=== PATIENT | male | born 1960 | race Caucasian/White ===

== ENCOUNTER 2022-01-07 21:25 | Observation (INO) | payer BC, MEDICARE ==
[~2022-01-07] VITALS: Ht 182.9 cm; Wt 98.0 kg
[~2022-01-07 21:25] MED LIST: GABA800T97; LORA-655 PO; PERCOT
[2022-01-07 22:54] LABS: Basophils # (auto) 0.1 10 ^3/uL (0-0.2); Basophils % (auto) 0.5 % (0.0-2.0); Eosinophils # (auto) 0 10 ^3/uL (0-0.8); Eosinophils % (auto) 0.3 % (0.0-7.0); Hematocrit 25.7 % (41.0-53.0); Hemoglobin 8.5 g/dL (13.5-17.5); Lymphocytes # (auto) 1.4 10 ^3/uL (0.4-5.4); Lymphocytes % (auto) 8.4 % (10.0-50.0); Mean Corpuscular Hemoglobin 30.4 pg (28.0-32.0); Mean Corpuscular Hgb Conc. 33.1 g/dL (32.0-36.0); Mean Corpuscular Volume 91.8 fL (80.0-100.0); Monocytes % (auto) 5.9 % (0.0-12.0); Neutrophils # (auto) 14.1 10 ^3/uL (1.6-8.6); Neutrophils % (auto) 84.9 % (37.0-80.0); Red Cell Distribution Width 13.5 % (11.8-14.3); White Blood Cell 16.6 10^3/uL (4.4-10.8)
[2022-01-07] MEDS ORDERED: SODIUM CHLORIDE 0.9% 1,000 ML IV ONE (23:15)
[2022-01-08 00:48] LABS: Bilirubin, Total 0.4 mg/dL (0.2-1.0); Lactic Acid w/Reflex 3.1 mmol/L (0.4-2.0); Total Protein 6.3 g/dL (6.4-8.2)
[2022-01-08] MEDS ORDERED: fentaNYL CITRATE 100 MCG/2 ML VL ONE (00:53)
[2022-01-08] MEDS ORDERED: ONDANSETRON HCL 4 MG/2 ML VIAL ONE (00:53)
[2022-01-08] MEDS ORDERED: ONDANSETRON HCL 4 MG/2 ML VIAL IV ONE (01:00)
[2022-01-08] MEDS ORDERED: fentaNYL CITRATE 100 MCG/2 ML VL IV ONE (01:00)
[2022-01-08 01:15] LABS: Albumin 2.6 g/dL (3.4-5.0); BUN/Creatinine Ratio 27.3; Magnesium 1.9 mg/dL (1.6-2.6); Potassium 4.4 mmol/L (3.5-5.1)
[2022-01-08 01:44] LABS: Basophils # (auto) 0 10 ^3/uL (0-0.2); Basophils % (auto) 0.2 % (0.0-2.0); Eosinophils # (auto) 0 10 ^3/uL (0-0.8); Eosinophils % (auto) 0.1 % (0.0-7.0); Lymphocytes # (auto) 1.6 10 ^3/uL (0.4-5.4); Neutrophils # (auto) 16.5 10 ^3/uL (1.6-8.6); Nucleated Red Blood Cells % 0.1 %
[2022-01-08 01:46] LABS: Hematocrit 22.5 % (41.0-53.0); Hemoglobin 7.7 g/dL (13.5-17.5); Lymphocytes % (auto) 8.2 % (10.0-50.0); Mean Corpuscular Hemoglobin 31.6 pg (28.0-32.0); Mean Corpuscular Hgb Conc. 34.3 g/dL (32.0-36.0); Mean Corpuscular Volume 92.1 fL (80.0-100.0); Monocytes % (auto) 5.3 % (0.0-12.0); Neutrophils % (auto) 86.2 % (37.0-80.0); Red Blood Cells 2.44 10^6/uL (4.5-5.90); Red Cell Distribution Width 13.7 % (11.8-14.3); White Blood Cell 19.1 10^3/uL (4.4-10.8)
[2022-01-08 02:17] LABS: Partial Thromboplastin Time 24.9 sec (24.6-33.4)
[2022-01-08] MEDS ORDERED: PIPERACILLIN-TAZOB 3.375GM 100 ML IV ONE (02:30)
[2022-01-08] MEDS ORDERED: PANTOPRAZOLE 40 MG/10 ML VIAL INJ IV ONE (03:00)
[2022-01-08] MEDS ORDERED: MORPHINE SULFATE INJ 2 MG/ml SYRG IV PRN (03:00)
[2022-01-08] MEDS ORDERED: SODIUM CHLORIDE 0.9% 1,000 ML IV ONE (03:00)
[2022-01-08] MEDS ORDERED: NITROGLYCERIN 0.4 MG SL TAB SL PRN (03:00)
[2022-01-08] MEDS: ONDANSETRON HCL 4 MG/2 ML VIAL IV PRN ×3 (03:40→16:44)
[2022-01-08] MEDS: MORPHINE SULFATE INJ 2 MG/ml SYRG IV PRN ×4 (03:40→22:12)
[2022-01-08] MEDS: PANTOPRAZOLE 40mg/50ML NS AE 50 ML IV SCH ×5 (03:43→22:11)
[2022-01-08 04:45] VITALS: BP 113/65
[2022-01-08 05:00] VITALS: BP 121/64
[2022-01-08] MEDS: SODIUM CHLORIDE 0.9% 1,000 ML IV SCH ×2 (05:01→12:53)
[2022-01-08] MEDS: PIPERACILLIN-TAZOB 3.375GM 100 ML IV SCH ×3 (09:20→18:00)
[2022-01-08 09:25] LABS: Basophils # (auto) 0.1 10 ^3/uL (0-0.2); Eosinophils # (auto) 0.1 10 ^3/uL (0-0.8); Lymphocytes # (auto) 1.8 10 ^3/uL (0.4-5.4); Red Cell Distribution Width 14.6 % (11.8-14.3)
[2022-01-08 09:29] LABS: Basophils % (auto) 0.7 % (0.0-2.0); Eosinophils % (auto) 0.6 % (0.0-7.0); Hematocrit 25.6 % (41.0-53.0); Hemoglobin 8.3 g/dL (13.5-17.5); Lymphocytes % (auto) 12.1 % (10.0-50.0); Mean Corpuscular Hemoglobin 29.6 pg (28.0-32.0); Mean Corpuscular Hgb Conc. 32.6 g/dL (32.0-36.0); Mean Corpuscular Volume 90.7 fL (80.0-100.0); Monocytes % (auto) 6.9 % (0.0-12.0); Neutrophils # (auto) 11.8 10 ^3/uL (1.6-8.6); Neutrophils % (auto) 79.7 % (37.0-80.0); Red Blood Cells 2.82 10^6/uL (4.5-5.90); White Blood Cell 14.8 10^3/uL (4.4-10.8)
[2022-01-08 09:44] LABS: Urine Bacteria FEW /hpf (None Seen); Urine Blood Negative /uL (Negative); Urine Specific Gravity 1.028 (1.001-1.035); Urine WBC 2 /hpf (0 - 3)
[2022-01-08 09:45] LABS: Calcium 7.7 mg/dL (8.5-10.1); Potassium 4.2 mmol/L (3.5-5.1)
[2022-01-08 09:47] LABS: BUN/Creatinine Ratio 32.5
[2022-01-08] MEDS ORDERED: GOLYTELY 4L KIT PO ONE (16:00)
[2022-01-08 22:00] VITALS: BP 129/80
[2022-01-09] MEDS: PIPERACILLIN-TAZOB 3.375GM 100 ML IV SCH ×4 (01:25→19:22)
[2022-01-09] MEDS: SODIUM CHLORIDE 0.9% 1,000 ML IV SCH ×4 (01:31→19:20)
[2022-01-09] MEDS: MORPHINE SULFATE INJ 2 MG/ml SYRG IV PRN ×3 (03:57→19:32)
[2022-01-09 05:00] VITALS: BP 125/74
[2022-01-09] MEDS ORDERED: GOLYTELY 4L KIT PO ONE (06:00)
[2022-01-09] MEDS: PANTOPRAZOLE 40mg/50ML NS AE 50 ML IV SCH ×4 (06:13→19:24)
[2022-01-09 06:53] LABS: Basophils # (auto) 0.1 10 ^3/uL (0-0.2); Basophils % (auto) 0.6 % (0.0-2.0); Eosinophils # (auto) 0.4 10 ^3/uL (0-0.8); Hematocrit 24.8 % (41.0-53.0); Hemoglobin 8.2 g/dL (13.5-17.5); Lymphocytes # (auto) 1.6 10 ^3/uL (0.4-5.4); Lymphocytes % (auto) 16.3 % (10.0-50.0); Mean Corpuscular Hemoglobin 30.5 pg (28.0-32.0); Mean Corpuscular Hgb Conc. 33.2 g/dL (32.0-36.0); Mean Corpuscular Volume 91.8 fL (80.0-100.0); Monocytes # (auto) 0.6 10 ^3/uL (0-1.3); Monocytes % (auto) 5.8 % (0.0-12.0); Neutrophils # (auto) 6.9 10 ^3/uL (1.6-8.6); Neutrophils % (auto) 73.3 % (37.0-80.0); Red Cell Distribution Width 14.7 % (11.8-14.3); White Blood Cell 9.5 10^3/uL (4.4-10.8)
[2022-01-09 09:00] VITALS: BP 136/71
[2022-01-09 09:25] LABS: Basophils # (auto) 0.1 10 ^3/uL (0-0.2); Basophils % (auto) 1.2 % (0.0-2.0); Eosinophils # (auto) 0.4 10 ^3/uL (0-0.8); Eosinophils % (auto) 3.5 % (0.0-7.0); Hematocrit 27.5 % (41.0-53.0); Hemoglobin 9.1 g/dL (13.5-17.5); Lymphocytes # (auto) 1.4 10 ^3/uL (0.4-5.4); Lymphocytes % (auto) 12.7 % (10.0-50.0); Mean Corpuscular Hemoglobin 30.1 pg (28.0-32.0); Mean Corpuscular Hgb Conc. 32.9 g/dL (32.0-36.0); Mean Corpuscular Volume 91.4 fL (80.0-100.0); Monocytes # (auto) 0.5 10 ^3/uL (0-1.3); Monocytes % (auto) 5.1 % (0.0-12.0); Neutrophils # (auto) 8.4 10 ^3/uL (1.6-8.6); Neutrophils % (auto) 77.5 % (37.0-80.0); Red Blood Cells 3.01 10^6/uL (4.5-5.90); Red Cell Distribution Width 14.7 % (11.8-14.3); White Blood Cell 10.8 10^3/uL (4.4-10.8)
[2022-01-09] MEDS ORDERED: LIDOCAINE VISCOUS 2% 15ML UD ONE (10:23)
[2022-01-09] MEDS ORDERED: SODIUM CHLORIDE LOCK 10 ML ONE (10:23)
[2022-01-09] MEDS ORDERED: FLUMAZENIL 0.1 MG/ML INJ 10ML MDV IV ONE (10:23)
[2022-01-09] MEDS ORDERED: NALOXONE HCL 0.4 MG/ML VIAL ONE (10:23)
[2022-01-09] MEDS ORDERED: diphenhdrAMINE HCL 50 MG/1 ML VL ONE (10:24)
[2022-01-09] MEDS ORDERED: EPINEPHrine HCL 1 MG/1 ML AMP ONE (10:24)
[2022-01-09] MEDS: MIDAZOLAM HCL 5 MG/ML-1ML VIAL ONE ×3 (12:11→12:17)
[2022-01-09] MEDS: fentaNYL CITRATE 100 MCG/2 ML VL ONE ×3 (12:11→12:17)
[2022-01-09] MEDS ORDERED: SUCR1SUS10 PO (12:36)
[2022-01-09] MEDS ORDERED: OMEP-434 PO (12:36)
[2022-01-09 13:00] VITALS: BP 131/73
[2022-01-09 16:43] VITALS: BP 132/71
[2022-01-09 16:48] LABS: Basophils # (auto) 0.1 10 ^3/uL (0-0.2); Basophils % (auto) 0.8 % (0.0-2.0); Eosinophils # (auto) 0.4 10 ^3/uL (0-0.8); Eosinophils % (auto) 3.3 % (0.0-7.0); Hematocrit 26.7 % (41.0-53.0); Hemoglobin 8.9 g/dL (13.5-17.5); Lymphocytes % (auto) 18.3 % (10.0-50.0); Mean Corpuscular Hemoglobin 30.4 pg (28.0-32.0); Mean Corpuscular Hgb Conc. 33.2 g/dL (32.0-36.0); Mean Corpuscular Volume 91.5 fL (80.0-100.0); Monocytes # (auto) 0.6 10 ^3/uL (0-1.3); Neutrophils # (auto) 7.7 10 ^3/uL (1.6-8.6); Neutrophils % (auto) 71.6 % (37.0-80.0); Red Blood Cells 2.92 10^6/uL (4.5-5.90); Red Cell Distribution Width 14.7 % (11.8-14.3); White Blood Cell 10.8 10^3/uL (4.4-10.8)
[2022-01-09 22:00] VITALS: BP 122/74
[2022-01-10] MEDS: PIPERACILLIN-TAZOB 3.375GM 100 ML IV SCH ×4 (01:41→18:59)
[2022-01-10] MEDS: PANTOPRAZOLE 40mg/50ML NS AE 50 ML IV SCH ×4 (01:42→15:58)
[2022-01-10] MEDS: MORPHINE SULFATE INJ 2 MG/ml SYRG IV PRN ×4 (02:20→17:38)
[2022-01-10 05:00] VITALS: BP 140/71
[2022-01-10] MEDS: SODIUM CHLORIDE 0.9% 1,000 ML IV SCH ×2 (06:57→11:44)
[2022-01-10 09:00] VITALS: BP 140/75
[2022-01-10 13:00] VITALS: BP 155/81
[2022-01-10 17:00] VITALS: BP 153/79
[2022-01-10 18:16] VITALS: BP 110/75
[2022-01-10 20:58] LABS: Basophils # (auto) 0.1 10 ^3/uL (0-0.2); Basophils % (auto) 0.8 % (0.0-2.0); Eosinophils # (auto) 0.4 10 ^3/uL (0-0.8); Eosinophils % (auto) 3.7 % (0.0-7.0); Hemoglobin 9.6 g/dL (13.5-17.5); Lymphocytes # (auto) 1.7 10 ^3/uL (0.4-5.4); Lymphocytes % (auto) 15.2 % (10.0-50.0); Mean Corpuscular Hemoglobin 30.1 pg (28.0-32.0); Mean Corpuscular Hgb Conc. 33.2 g/dL (32.0-36.0); Mean Corpuscular Volume 90.8 fL (80.0-100.0); Monocytes # (auto) 0.7 10 ^3/uL (0-1.3); Monocytes % (auto) 6.5 % (0.0-12.0); Neutrophils # (auto) 8.3 10 ^3/uL (1.6-8.6); Neutrophils % (auto) 73.8 % (37.0-80.0); Nucleated Red Blood Cells % 0.1 %; Red Cell Distribution Width 14.6 % (11.8-14.3); White Blood Cell 11.3 10^3/uL (4.4-10.8)
== END 2022-01-10 21:34 | disposition home health service (06) ==
LOC: EDBD 21:25 → ER 21:37 → TELE 01-08 03:07 → TELE-WESTW 01-08 18:36
PROVIDERS: ADMIT Hospitalist; ATTEND Hospitalist
DX: R55 Syncope and collapse (principal); Z20.822 Contact with and (suspected) exposure to COVID-19; D64.9 Anemia, unspecified; K92.2 Gastrointestinal hemorrhage, unspecified; E86.1 Hypovolemia; S09.90XA Unspecified injury of head, initial encounter; I10 Essential (primary) hypertension; D62 Acute posthemorrhagic anemia; K20.90 Esophagitis, unspecified without bleeding; M79.652 Pain in left thigh; Z96.651 Presence of right artificial knee joint; Z79.899 Other long term (current) drug therapy; Z98.890 Other specified postprocedural states; X58.XXXA Exposure to other specified factors, initial encounter; Y92.89 Other specified places as the place of occurrence of the external cause; Y93.89 Activity, other specified; Y99.8 Other external cause status
CPT/HCPCS: 36415; 36430; 43239; 45378; 70450; 71045; 71250; 72125; 74176; 80048; 80053; 81001; 83605; 83690; 83735; 84484; 85025; 85610; 85730; 86850; 86900; 86901; 86920; 87426; 88305; 88342; 93005; 96365; 96366; 96368; 96375; 96376; 99285; C9113; G0378; J1200; J2250; J2270; J2405; J2543; J3010; J7030; P9016; J0171

== ENCOUNTER 2024-11-28 13:46 | Inpatient (IN) | payer OTHER, MEDICAID ==
[~2024-11-28] VITALS: Ht 175.3 cm; Wt 96.4 kg
[~2024-11-28 13:46] MED LIST changes: +OMEP-434 PO; +SUCR1SUS26 PO
--- NOTE | 2024-11-28 13:53 | ED.PDOC ---
GI ASSESSMENT HPI Comments 64 y/o M, BIBA, with PMHx of HTN presents to the ED for CC of abdominal pain. EMS reports, patient is coming from home where he c/o diffuse abdominal pain with associated symptoms of nausea and vomiting onset, today (11/28/24). Patient reports, his LBM to be as of today (11/28/24). In route to the ED, all vital signs were WNL patient was said to be in moderate distress however. Upon arrival to the Ed, patient began to have bright red emesis. Care is ongoing at this time. Time Seen by MD: 13:50 Primary Care Provider: MATTHEW Reviewed Notes: Nurses Notes, Nurse Esthetician Notes, Medications, Allergies Allergies: Coded Allergies: NO KNOWN ALLERGIES (Unverified , 12/16/10) Home Meds Active Scripts Sucralfate (CARAFATE SUSP) 1 Gm/10 Ml Ss, 10 ML PO QID, #1200 ML 3 Refills Prov:KOMAL RUVALCABA MD 01/09/22 Omeprazole Magnesium (Omeprazole) 20 Mg Tab, 20 MG PO BID for 60 Days, #120 TAB Prov:KOMAL RUVALCABA MD 01/09/22 Reported Medications Lorazepam (Ativan) 0.5 Mg Tab, PO PRN 04/12/12 Oxycodone W/ Acetaminophen (Percocet 5/325MG) 1 Tab Tb 04/12/12 [[id number] Mg] (Gabapentin) 800 MG TAB No Conflict Check, MG 04/12/12 Information Source: Patient, Emergency Med Personnel Mode of Arrival: EMS Timing: Days Duration: Since onset Prehospital treatment: None Vomitus: Watery Stool: Normal Severity: Moderate Recent: None Recent Hx of: None Pain Location: Diffuse Modifying Factors: Nothing Associated sign and symptoms: Nausea, Vomiting, Abdominal Pain Past Medical History PAST MEDICAL HISTORY: HTN Surgical History: Hernia Repair Family History Family History: Reviewed,noncontributory to illness Social History Smoker: Non-Smoker Alcohol: Denies ETOH Use Drugs: Denies Drug Use Lives In: Home Constitutional: denies: chills, diaphoresis, fatigue, fever, malaise, sweats, weakness, others EENTM: denies: blurred vision, double vision, ear bleeding, ear discharge, ear drainage, ear pain, ear ringing, eye pain, eye redness, hearing loss, mouth pain, mouth swelling, nasal discharge, nose bleeding, nose congestion, nose pain, photophobia, tearing, throat pain, throat swelling, voice changes, others Respiratory: denies: cough, hemoptysis, orthopnea, SOB at rest, shortness of breath, SOB with excertion, stridor, wheezing, others Cardiovascular: denies: chest pain, dizzy spells, diaphoresis, Dyspnea on exertion, edema, irregular heart beat, left arm pain, lightheadedness, palpitations, PND, syncope, others Gastrointestinal: reports: abdominal pain, nausea, vomiting; denies: abdomen distended, blood streaked bowels, constipated, diarrhea, dysphagia, difficulty swallowing, hematemesis, melena, poor appetite, poor fluid intake, rectal bleeding, rectal pain, others Genitourinary: denies: burning, dysuria, flank pain, frequency, hematuria, incontinence, penile discharge, penile sore, pain, testicle pain, testicle swelling, urgency, others Neurological: denies: dizziness, fainting, headache, left sided numbness, left sided weakness, numbness, paresthesia, pre-existing deficit, right sided numbness, right sided weakness, seizure, speech problems, tingling, tremors, weakness, others Musculoskeletal: denies: back pain, gout, joint pain, joint swelling, muscle pain, muscle stiffness, neck pain, others Integumetry: denies: bruises, change in color, change in hair/nails, dryness, laceration, lesions, lumps, rash, wounds, others Allergic/Immunocompromised: denies: Difficulty Healing, Frequent Infections, Hives, Itching, others Hematologic/Lymphatic: denies: anemia, blood clots, easy bleeding, easy bruising, swollen glands, others Endocrine: denies: excessive hunger, excessive sweating, excessive thirst, excessive urination, flushing, intolerance to cold, intolerance to heat, unexplained weight gain, unexplained weight loss, others Psychiatric: denies: anxiety, bipolar disorder, depression, hopeless, panic disorder, schizophrenia, sleepless, suicidal, others All Other Systems: Reviewed and Negative Physical Exam General Appearance: Moderate Distress HEENT: Normal ENT Inspection, Pharynx Normal, TMs Normal Neck: Full Range of Motion, Non-Tender, Normal, Normal Inspection Respiratory: Chest Non-Tender, Lungs Clear, No Accessory Muscle Use, No Respiratory Distress, Normal Breath Sounds Cardiovascular: No Edema, No JVD, No Murmur, No Gallop, Normal Peripheral Pulses, Regular Rate/Rhythm Breast Exam: Deferred Gastrointestinal: Distended Genitalia: Deferred Pelvic: Deferred Rectal: Deferred Extremities: No calf tenderness, Normal range of motion, No pedal edema Musculoskeletal : Apperance: Normal Neurologic: Alert, No Motor Deficits, No Sensory Deficits Cerebellar Function: NOT DONE Reflexes: NOT DONE Skin: Dry, Normal Color, Warm Lymphatic: No Adenopathy Was a procedure done? Was a procedure done?: No GI differential Dx Differential Diagnosis: Constipation, Diverticular disease, Esophagitis, Gastritis/PUD, Gastroenteritis, Electrolyte Imbalance, Food Poisoning, Bacterial, Viral X-Ray, Labs, Meds, VS Vital Signs Date Time Temp Pulse Resp B/P (MAP) Pulse Ox O2 Delivery O2 Flow Rate FiO2 11/28/24 14:10 98.0 72 25 129/61 99 98.0 11/28/24 13:52 61 Lab Test 11/28/24 14:10 Range/Units White Blood Count 12.2 H 4.4-10.8 10^3/uL Red Blood Count 5.26 4.5-5.90 10^6/uL Hemoglobin 16.1 13.5-17.5 g/dL Hematocrit 47.2 41.0-53.0 % Mean Corpuscular Volume 89.7 80.0-100.0 fL Mean Corpuscular Hemoglobin 30.6 28.0-32.0 pg Mean Corpuscular Hemoglobin Concent 34.1 32.0-36.0 g/dL Red Cell Distribution Width 13.8 11.8-14.3 % Platelet Count 247 140-450 10^3/uL Mean Platelet Volume 10.2 6.9-10.8 fL Neutrophils (%) (Auto) 86.9 H 37.0-80.0 % Lymphocytes (%) (Auto) 8.2 L 10.0-50.0 % Monocytes (%) (Auto) 4.0 0.0-12.0 % Eosinophils (%) (Auto) 0.6 0.0-7.0 % Basophils (%) (Auto) 0.3 0.0-2.0 % Neutrophils # (Auto) 10.6 H 1.6-8.6 10 ^3/uL Lymphocytes # (Auto) 1.0 0.4-5.4 10 ^3/uL Monocytes # (Auto) 0.5 0-1.3 10 ^3/uL Eosinophils # (Auto) 0.1 0-0.8 10 ^3/uL Basophils # (Auto) 0 0-0.2 10 ^3/uL Nucleated Red Blood Cells 0.0 % Sodium Level 142 136-145 mmol/L Potassium Level 4.0 3.5-5.1 mmol/L Chloride Level 105 98-107 mmol/L Carbon Dioxide Level 25 20-31 mmol/L Anion Gap 12 5-15 Blood Urea Nitrogen 19 9-23 mg/dL Creatinine 1.34 H 0.700-1.30 mg/dL Glomerular Filtration Rate Calc 59 >90 mL/min BUN/Creatinine Ratio 14.2 10.0-20.0 Serum Glucose 137 H 74-106 mg/dL Calcium Level 9.5 8.7-10.4 mg/dL Troponin I High Sensitivity 3 L </=54 ng/L Patient alert. Complaining of abdominal pain. Vomiting of blood-tinged material. Vitals stable. Establish intravenous access. Was given fluids. Was given Protonix. Explained to the patient. Continue to monitor. [place] [id number] Ph: [phone] DIAGNOSTIC IMAGING Diagnostic Imaging Report : [id number] Signed PATIENT: LEIF LUCIO PACCT: [id number] UNIT: [id number] : 1960 LOC: ER ROOM / BED: / AGE / SEX: 64 / M ADM STATUS: REG ER SERVICE 1400 ORDERING PHYSICIAN: PRASANTH CERON MD PROCEDURE(s): ABPL - CT AB PEL WO CON-NO ORAL OR IV REASON: distended ORDER NUMBER(s): [id number], ACCESSION NUMBER(s): [id number] CLINICAL INFORMATION: Abdominal distention. TECHNIQUE: Axial CT images of the abdomen and pelvis were obtained without IV contrast. Coronal and sagittal reformatted images were obtained, reviewed, and stored. Evaluation of the parenchymal organs is limited without IV contrast. Evaluation of the bowel and mesentery is limited without oral contrast. All CT scans at this medical facility are performed using dose modulation techniques as appropriate to a performed exam including the following: Automated exposure control was utilized; adjustment of the MA and/or KV according to patient size; and use of iterative reconstruction technique. CTDIvol = 21.04 mGy DLP = 3.92 mGy-cm COMPARISON: CT CHEST ABD PELVIS WO CONTRAS on DOS: 01/07/22, CTCAP on DOS: 01/07/22 FINDINGS: Motion artifact limits evaluation. Lung bases: Atelectasis in the lung bases. Respiratory motion artifact limits evaluation for subtle findings. [id number] cardiomegaly. Liver: Hepatic steatosis with areas of focal fatty sparing. Biliary: No calcified gallstones or biliary ductal dilatation. Spleen: Unremarkable. Pancreas: Grossly unremarkable in its noncontrast enhanced appearance. Adrenal glands: Unremarkable. No mass. Kidneys: No hydronephrosis. No renal or ureteral calculi. Aorta/Vascular: Mild to moderate atherosclerotic calcification. No abdominal aortic aneurysm. Retroperitoneum: No mass or lymphadenopathy. Bowel/mesentery: Dilated fluid-filled small bowel loops in the central abdomen with nondilated distal small bowel loops, suspected small-bowel obstruction with questionable transition point in the right lower abdomen. Appendix is visualized and appears unremarkable. Scattered colonic diverticula without adjacent inflammatory changes to suggest diverticulitis. Pelvic organs: Grossly unremarkable. Bladder: Unremarkable. No mass. Abdominal wall: Moderate-sized bilateral fat containing inguinal hernias. Bones: No acute fracture or suspicious intraosseous lesion. Postsurgical changes in the left acetabulum from prior open reduction internal fixation. Chronic appearing mild deformity of the superior endplate of the L2 vertebral body. IMPRESSION: 1. Motion limited study. 2. Findings consistent with small-bowel obstruction as described above. Correlate with clinical findings. 3. Scattered colonic diverticula without adjacent inflammatory changes to suggest diverticulitis. 4. Hepatic steatosis. 5. Moderate-sized bilateral fat containing inguinal hernias. 6. Additional findings as described above. ATED BY: CHANDRA SPIVEY DO DICTATED DATE/TIME: 11/28/241531 SIGNED BY: CHANDRA SPIVEY DO SIGNED DATE/TIME: 11/28/241531 CC: Time of 1ST Reevaluation: 14:20 Reevaluation 1ST: Unchanged Patient Education/Counseling: Diagnosis, Treatment Family Education/Counseling: No Family Present SEPSIS Sepsis Screen Physician Orders Urinalysis (8/5/25 14:00) Ct Ab Pel Wo Con-No Oral Or Iv (11/28/24 14:00) Type And Screen (11/28/24 14:02) Vital Signs Date Time Temp Pulse Resp B/P (MAP) Pulse Ox O2 Delivery O2 Flow Rate FiO2 11/28/24 14:10 98.0 72 25 129/61 99 98.0 11/28/24 13:52 61 Laboratory Tests Test 11/28/24 14:10 White Blood Count 12.2 10^3/uL (4.4-10.8) H Departure 1 Departure Time of Disposition: 14:14 Impression: Primary Impression: Small bowel obstruction Additional Impression: Acute abdominal pain Disposition: ADMITTED INPATIENT Admit to: Med Surg Condition: Guarded Critical Care Note Critical Care Time?: Yes (90 min-critical care time only) Stability Stability form required: No Heart Score Heart Score: Heart Score Response (Comments) Value History N/A 0 EKG N/A 0 Age N/A 0 Risk Factors N/A 0 Troponin N/A 0 Total 0 I personally scribed for PRASANTH CERON MD ([email or web address]) on 11/28/24 at 13:53. Electronically submitted by Lucie Vasquez ([email or web address]). I personally scribed for PRASANTH CERON MD ([email or web address]) on 11/28/24 at 14:04. Electronically submitted by Lucie Vasquez ([email or web address]). I personally scribed for PRASANTH CERON MD ([email or web address]) on 11/28/24 at 15:43. Electronically submitted by Lucie Vasquez ([email or web address]). PRASANTH CERON MD Nov 28, 2024 13:53
--- NOTE | 2024-11-28 14:14 | ECG ---
[facility] Test Date: 2024-11-28 Test Time: 13:52:43 Pat Name: LEIF LUCIO Department: ED Room: 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
[2024-11-28 14:44] LABS: Hematocrit 47.2 % (41.0-53.0); Hemoglobin 16.1 g/dL (13.5-17.5); Mean Corpuscular Hemoglobin 30.6 pg (28.0-32.0); Mean Corpuscular Volume 89.7 fL (80.0-100.0); Nucleated Red Blood Cells % 0.0 %
[2024-11-28 14:52] LABS: Chloride 105 mmol/L (98-107); Potassium 4.0 mmol/L (3.5-5.1); Sodium 142 mmol/L (136-145)
[2024-11-28 14:53] LABS: Anion Gap 12 (5-15); Calcium 9.5 mg/dL (8.7-10.4); Carbon Dioxide 25 mmol/L (20-31)
[2024-11-28 14:58] LABS: BUN/Creatinine Ratio 14.2 (10.0-20.0); Blood Urea Nitrogen 19 mg/dL (9-23)
[2024-11-28 14:59] LABS: Glucose 137 mg/dL (74-106)
--- NOTE | 2024-11-28 15:34 | DVH ---
CLINICAL INFORMATION: Abdominal distention. TECHNIQUE: Axial CT images of the abdomen and pelvis were obtained without IV contrast. Coronal and s agittal reformatted images were obtained, reviewed, and stored. Evaluation of the parenchymal organs is limited without IV contrast. Evaluation of the bowel and mesentery is limited without oral contras t. All CT scans at this medical facility are performed using dose modulation techniques as appropriat e to a performed exam including the following: Automated exposure control was utilized; adjustment of the MA and/or KV according to patient size; and use of iterative reconstruction technique. CTDIvol = 21.04 mGy DLP = 3.92 mGy-cm COMPARISON: CT CHEST ABD PELVIS WO CONTRAS on DOS: 01/07/22, CTCAP on DOS: 01/07/22 FINDINGS: Motion artifact limits evaluation. Lung bases: Atelectasis in the lung bases. Respiratory motion artifact limits evaluation for subtle f indings. Ggyj-pb-fbezjgen cardiomegaly. Liver: Hepatic steatosis with areas of focal fatty sparing. Biliary: No calcified gallstones or biliary ductal dilatation. Spleen: Unremarkable. Pancreas: Grossly unremarkable in its noncontrast enhanced appearance. Adrenal glands: Unremarkable. No mass. Kidneys: No hydronephrosis. No renal or ureteral calculi. Aorta/Vascular: Mild to moderate atherosclerotic calcification. No abdominal aortic aneurysm. Retroperitoneum: No mass or lymphadenopathy. Bowel/mesentery: Dilated fluid-filled small bowel loops in the central abdomen with nondilated distal small bowel loops, suspected small-bowel obstruction with questionable transition point in the right lower abdomen. Appendix is visualized and appears unremarkable. Scattered colonic diverticula witho ut adjacent inflammatory changes to suggest diverticulitis. Pelvic organs: Grossly unremarkable. Bladder: Unremarkable. No mass. Abdominal wall: Moderate-sized bilateral fat containing inguinal hernias. Bones: No acute fracture or suspicious intraosseous lesion. Postsurgical changes in the left acetabul um from prior open reduction internal fixation. Chronic appearing mild deformity of the superior endp late of the L2 vertebral body. IMPRESSION: 1. Motion limited study. 2. Findings consistent with small-bowel obstruction as described above. Correlate with clinical find ings. 3. Scattered colonic diverticula without adjacent inflammatory changes to suggest diverticulitis. 4. Hepatic steatosis. 5. Moderate-sized bilateral fat containing inguinal hernias. 6. Additional findings as described above.
[2024-11-28] MEDS: SODIUM CHLORIDE 0.9% 1,000 ML IV ONE (16:28)
[2024-11-28] MEDS: PANTOPRAZOLE 40 MG/10 ML VIAL INJ IV ONE (16:29)
[2024-11-28] MEDS ORDERED: hydrALAZINE HCL 20 MG/ML VL IV PRN (16:45)
[2024-11-28] MEDS ORDERED: PIPERACILLIN-TAZOB 3.375GM 100 ML IV SCH (16:45)
[2024-11-28] MEDS ORDERED: NITROGLYCERIN 0.4 MG SL TAB SL PRN (16:45)
[2024-11-28] MEDS: ONDANSETRON HCL 4 MG/2 ML VIAL IV ONE (16:52)
[2024-11-28] MEDS: MORPHINE SULFATE 4 MG/ML SYR/VIAL IV ONE (16:52)
[2024-11-28 17:22] LABS: INR 0.97 (0.9-1.15); Prothrombin Time 10.3 sec (9.3-11.8)
[2024-11-28] MEDS: SOD CHL 0.45% 1,000 ML IV SCH (18:00)
--- NOTE | 2024-11-28 19:59 | DVHINCON2 ---
Consultation - Surgical Date Seen: Nov 28, 2024 Referring Physician Referring Physician er Reason for Consultation sbo History of Present Illness History of Present Illness 64 y/o M, BIBA, with PMHx of HTN presents to the ED for CC of abdominal pain. EMS reports, patient is coming from home where he c/o diffuse abdominal pain with associated symptoms of nausea and vomiting onset, today (11/28/24). Patient reports, his LBM to be as of today (11/28/24). In route to the ED, all vital signs were WNL patient was said to be in moderate distress however. Upon arrival to the Ed, patient began to have bright red emesis. Care is ongoing at this time . Patient states he had a bowel movement this morning however it was hard and was difficult to pass due to constipation. Patient did receive some pain medications in the emergency room he states he is feeling better however he has no longer nauseous but has not passed any gas as of yet. Past Medical/Surgical History Past Medical/Surgical History Hypertension Family and Social History Family and Social History Occasional drinker and marijuana use Allergies and medications Allergies: Coded Allergies: NO KNOWN ALLERGIES (Unverified , 12/16/10) Home Meds Active Scripts Sucralfate (CARAFATE SUSP) 1 Gm/10 Ml Ss, 10 ML PO QID, #1200 ML 3 Refills Prov:KOMAL RUVALCABA MD 01/09/22 Omeprazole Magnesium (Omeprazole) 20 Mg Tab, 20 MG PO BID for 60 Days, #120 TAB Prov:KOMAL RUVALCABA MD 01/09/22 Reported Medications Lorazepam (Ativan) 0.5 Mg Tab, PO PRN 04/12/12 Oxycodone W/ Acetaminophen (Percocet 5/325MG) 1 Tab Tb 04/12/12 [[id number] Mg] (Gabapentin) 800 MG TAB No Conflict Check, MG 04/12/12 Review of systems Review of Systems: HEENT:Normal, CVS:Normal, RESPIRATORY:Normal, GI:Abnormal, :Normal, NEURO:Normal Examination Vital signs Vital Signs Date Time Temp Pulse Resp B/P (MAP) Pulse Ox O2 Delivery O2 Flow Rate FiO2 11/28/24 18:05 Room Air* 0 21 11/28/24 17:52 97.1 72 16 135/77 (96) 95 97.1 Medications Current Medications Medications (Trade) Dose Ordered Sig/Anuel Route PRN Reason Start Time Stop Time Status Last Admin Nitroglycerin (Ntrostat Sublingual) 0.4 mg Q5MINP PRN SL FOR CHEST PAIN 11/28/24 16:45 Morphine Sulfate 2 mg Q30M PRN IV FOR CHEST PAIN 11/28/24 16:45 Piperacillin Sod/ Tazobactam Sod 100 ml @ 100 mls/hr Q6HR IV 11/28/24 16:45 11/28/24 16:53 DC Sodium Chloride 1,000 ml @ 75 mls/hr [id number] IV 11/28/24 16:45 11/28/24 18:00 Morphine Sulfate 2 mg Q4HP PRN IV pain 11/28/24 16:45 Ondansetron HCl (Zofran) 4 mg Q4HP PRN IV n/v 11/28/24 16:45 Hydralazine HCl (Apresoline Injection) 10 mg Q4HPRN PRN IV sbp >160 11/28/24 16:45 Piperacillin Sod/ Tazobactam Sod 100 ml @ 100 mls/hr Q8HR IV 11/28/24 22:00 Laboratory Labs Test 11/28/24 14:10 Range/Units White Blood Count 12.2 H 4.4-10.8 10^3/uL Red Blood Count 5.26 4.5-5.90 10^6/uL Hemoglobin 16.1 13.5-17.5 g/dL Hematocrit 47.2 41.0-53.0 % Mean Corpuscular Volume 89.7 80.0-100.0 fL Mean Corpuscular Hemoglobin 30.6 28.0-32.0 pg Mean Corpuscular Hemoglobin Concent 34.1 32.0-36.0 g/dL Red Cell Distribution Width 13.8 11.8-14.3 % Platelet Count 247 140-450 10^3/uL Mean Platelet Volume 10.2 6.9-10.8 fL Neutrophils (%) (Auto) 86.9 H 37.0-80.0 % Lymphocytes (%) (Auto) 8.2 L 10.0-50.0 % Monocytes (%) (Auto) 4.0 0.0-12.0 % Eosinophils (%) (Auto) 0.6 0.0-7.0 % Basophils (%) (Auto) 0.3 0.0-2.0 % Neutrophils # (Auto) 10.6 H 1.6-8.6 10 ^3/uL Lymphocytes # (Auto) 1.0 0.4-5.4 10 ^3/uL Monocytes # (Auto) 0.5 0-1.3 10 ^3/uL Eosinophils # (Auto) 0.1 0-0.8 10 ^3/uL Basophils # (Auto) 0 0-0.2 10 ^3/uL Nucleated Red Blood Cells 0.0 % Prothrombin Time 10.3 9.3-11.8 sec Prothrombin Time INR 0.97 0.9-1.15 Sodium Level 142 136-145 mmol/L Potassium Level 4.0 3.5-5.1 mmol/L Chloride Level 105 98-107 mmol/L Carbon Dioxide Level 25 20-31 mmol/L Anion Gap 12 5-15 Blood Urea Nitrogen 19 9-23 mg/dL Creatinine 1.34 H 0.700-1.30 mg/dL Glomerular Filtration Rate Calc 59 >90 mL/min BUN/Creatinine Ratio 14.2 10.0-20.0 Serum Glucose 137 H 74-106 mg/dL Calcium Level 9.5 8.7-10.4 mg/dL Troponin I High Sensitivity 3 L </=54 ng/L TECHNIQUE: Axial CT images of the abdomen and pelvis were obtained without IV contrast. Coronal and sagittal reformatted images were obtained, reviewed, and stored. Evaluation of the parenchymal organs is limited without IV contrast. Evaluation of the bowel and mesentery is limited without oral contrast. All CT scans at this medical facility are performed using dose modulation techniques as appropriate to a performed exam including the following: Automated exposure control was utilized; adjustment of the MA and/or KV according to patient size; and use of iterative reconstruction technique. CTDIvol = 21.04 mGy DLP = 3.92 mGy-cm COMPARISON: CT CHEST ABD PELVIS WO CONTRAS on DOS: 01/07/22, CTCAP on DOS: 01/07/22 FINDINGS: Motion artifact limits evaluation. Lung bases: Atelectasis in the lung bases. Respiratory motion artifact limits evaluation for subtle findings. Ymrf-fc-pauebdrj cardiomegaly. Liver: Hepatic steatosis with areas of focal fatty sparing. Biliary: No calcified gallstones or biliary ductal dilatation. Spleen: Unremarkable. Pancreas: Grossly unremarkable in its noncontrast enhanced appearance. Adrenal glands: Unremarkable. No mass. Kidneys: No hydronephrosis. No renal or ureteral calculi. Aorta/Vascular: Mild to moderate atherosclerotic calcification. No abdominal aortic aneurysm. Retroperitoneum: No mass or lymphadenopathy. Bowel/mesentery: Dilated fluid-filled small bowel loops in the central abdomen with nondilated distal small bowel loops, suspected small-bowel obstruction with questionable transition point in the right lower abdomen. Appendix is visualized and appears unremarkable. Scattered colonic diverticula without adjacent inflammatory changes to suggest diverticulitis. Pelvic organs: Grossly unremarkable. Bladder: Unremarkable. No mass. Abdominal wall: Moderate-sized bilateral fat containing inguinal hernias. Bones: No acute fracture or suspicious intraosseous lesion. Postsurgical changes in the left acetabulum from prior open reduction internal fixation. Chronic appearing mild deformity of the superior endplate of the L2 vertebral body. IMPRESSION: 1. Motion limited study. 2. Findings consistent with small-bowel obstruction as described above. Correlate with clinical findings. 3. Scattered colonic diverticula without adjacent inflammatory changes to suggest diverticulitis. 4. Hepatic steatosis. 5. Moderate-sized bilateral fat containing inguinal hernias. 6. Additional findings as described above. Examination: GENERAL:Normal, HEENT:Normal, NECK:Normal, CVS:Normal, ABDOMEN:Normal (Abdomen is soft mildly distended currently nontender no rebound no guarding.) Problem List/Assessment/Plan Problems: (1) Small bowel obstruction Assessment and Plan Patient presents with symptoms consistent with partial small bowel obstruction. Patient will remain NPO NG tube IV fluids electrolyte management. Continue to reassess. We will follow Plan discussed with Plan discussed with: Patient Visit Coding Surgery Date of Service if different f: Nov 28, 2024 Billing Provider: FELIPE KRAUS Jr., MD Surgery Visit Codes: 28566 - INP CONSULT <80 MIN FELIPE KRAUS Jr., MD Nov 28, 2024 19:59
[2024-11-28] MEDS: PIPERACILLIN-TAZOB 3.375GM 100 ML IV SCH (23:45)
[2024-11-28] MEDS: MORPHINE SULFATE INJ 2 MG/ml SYRG IV PRN (23:45)
[2024-11-28] MEDS: ONDANSETRON HCL 4 MG/2 ML VIAL IV PRN (23:45)
[2024-11-29 04:15] LABS: Hematocrit 46.3 % (41.0-53.0); Hemoglobin 15.5 g/dL (13.5-17.5); Mean Corpuscular Hemoglobin 30.6 pg (28.0-32.0); Mean Corpuscular Volume 91.3 fL (80.0-100.0); Nucleated Red Blood Cells % 0.1 %
[2024-11-29 04:31] LABS: Albumin 4.6 g/dL (3.2-4.8); Alkaline Phosphatase 92 U/L (46-116); Anion Gap 9 (5-15); BUN/Creatinine Ratio 13.6 (10.0-20.0); Blood Urea Nitrogen 16 mg/dL (9-23); Calcium 8.9 mg/dL (8.7-10.4); Carbon Dioxide 27 mmol/L (20-31); Glucose 95 mg/dL (74-106); Potassium 4.0 mmol/L (3.5-5.1); Sodium 143 mmol/L (136-145); Total Protein 7.8 g/dL (5.7-8.2)
[2024-11-29 04:32] LABS: Bilirubin, Total 1.1 mg/dL (0.2-1.0)
[2024-11-29 04:39] LABS: Alanine Aminotransferase 105 U/L (7-40); Chloride 107 mmol/L (98-107)
--- NOTE | 2024-11-29 07:16 | DVHHP2 ---
Admitting Diagnosis: sbo History of Present Illness HPI 64 M with abdominal pain who comes to ER for this along with n/v. His initial CT abdomen showed SBO and mary was consulted by ER who recommended admission for SBO and NG decompression. He states his LBM was yesterday. He denies any other complaints besides abd pain associated with n/v. He will be admitted to medsur floor for NG decompression and surgical evaluation. Home Meds Active Scripts Sucralfate (CARAFATE SUSP) 1 Gm/10 Ml Ss, 10 ML PO QID, #1200 ML 3 Refills Prov:KOMAL RUVALCABA MD 01/09/22 Omeprazole Magnesium (Omeprazole) 20 Mg Tab, 20 MG PO BID for 60 Days, #120 TAB Prov:KOMAL RUVALCABA MD 01/09/22 Reported Medications Lorazepam (Ativan) 0.5 Mg Tab, PO PRN 04/12/12 Oxycodone W/ Acetaminophen (Percocet 5/325MG) 1 Tab Tb 04/12/12 [[id number] Mg] (Gabapentin) 800 MG TAB No Conflict Check, MG 04/12/12 Past Medical History Cardiac: HTN Patient Family History: Patient reports no known family medical history. Review of Systems Constitutional: No symptom reported Pulmonary/Respiratory: No symptom reported Cardiovascular: No symptom reported Gastrointestinal: Nausea, Vomiting, Abdominal Pain H&P Exam Vital Signs Vital Signs Date Time Temp Pulse Resp B/P (MAP) Pulse Ox O2 Delivery O2 Flow Rate FiO2 11/29/24 06:04 97.6 56 16 136/83 (100) 95 97.6 11/28/24 18:05 Room Air* 0 21 General Appeara: Well developed Head Exam: Normal inspection Neck Exam: Normal inspection Nasal Exam: Normal inspection Cardiovascular/Chest: Normal inspection Abdominal Exam: Soft SEPSIS Sepsis Screen Date sepsis recognized/suspect: Nov 28, 2024 Time Sepsis recognized/suspect: 1410 Recent Procedure: No On Antibiotic Therapy: No Respiratory Rate >20: No Heart Rate >90: No Temp<36 C (96.8 F) or >38.3 C: No SBP <90 or MAP <65 mmHG: No New Acute Mental Status Change: No Is the patient on CPAP, BIPAP,: No Vital Signs Date Time Temp Pulse Resp B/P (MAP) Pulse Ox O2 Delivery O2 Flow Rate FiO2 11/29/24 06:04 97.6 56 16 136/83 (100) 95 97.6 11/28/24 23:45 66 16 136/86 11/28/24 23:33 98.0 66 16 136/86 (103) 95 98.0 Laboratory Tests Test 11/29/24 03:57 White Blood Count 10.9 10^3/uL (4.4-10.8) H Medications Medications Dose Ordered Sig/Anuel Route Start Time Stop Time Status Last Admin Dose Admin Piperacillin Sod/ Tazobactam Sod 100 ml @ 100 mls/hr Q8HR IV 11/28/24 22:00 11/28/24 23:45 100 MLS/HR Labs/Xrays Labs Test 11/29/24 03:57 11/28/24 14:10 Range/Units White Blood Count 10.9 H 4.4-10.8 10^3/uL Red Blood Count 5.07 4.5-5.90 10^6/uL Hemoglobin 15.5 13.5-17.5 g/dL Hematocrit 46.3 41.0-53.0 % Mean Corpuscular Volume 91.3 80.0-100.0 fL Mean Corpuscular Hemoglobin 30.6 28.0-32.0 pg Mean Corpuscular Hemoglobin Concent 33.5 32.0-36.0 g/dL Red Cell Distribution Width 13.7 11.8-14.3 % Platelet Count 221 140-450 10^3/uL Mean Platelet Volume 9.7 6.9-10.8 fL Neutrophils (%) (Auto) 76.0 37.0-80.0 % Lymphocytes (%) (Auto) 15.6 10.0-50.0 % Monocytes (%) (Auto) 6.2 0.0-12.0 % Eosinophils (%) (Auto) 1.8 0.0-7.0 % Basophils (%) (Auto) 0.4 0.0-2.0 % Neutrophils # (Auto) 8.3 1.6-8.6 10 ^3/uL Lymphocytes # (Auto) 1.7 0.4-5.4 10 ^3/uL Monocytes # (Auto) 0.7 0-1.3 10 ^3/uL Eosinophils # (Auto) 0.2 0-0.8 10 ^3/uL Basophils # (Auto) 0 0-0.2 10 ^3/uL Nucleated Red Blood Cells 0.1 % Sodium Level 143 136-145 mmol/L Potassium Level 4.0 3.5-5.1 mmol/L Chloride Level 107 98-107 mmol/L Carbon Dioxide Level 27 20-31 mmol/L Anion Gap 9 5-15 Blood Urea Nitrogen 16 9-23 mg/dL Creatinine 1.18 0.700-1.30 mg/dL Glomerular Filtration Rate Calc 69 >90 mL/min BUN/Creatinine Ratio 13.6 10.0-20.0 Serum Glucose 95 74-106 mg/dL Calcium Level 8.9 8.7-10.4 mg/dL Total Bilirubin 1.1 H 0.2-1.0 mg/dL Aspartate Amino Transferase (AST) 49 H 13-40 U/L Alanine Aminotransferase (ALT) 105 H 7-40 U/L Alkaline Phosphatase 92 46-116 U/L Total Protein 7.8 5.7-8.2 g/dL Albumin 4.6 3.2-4.8 g/dL Prothrombin Time 10.3 9.3-11.8 sec Prothrombin Time INR 0.97 0.9-1.15 Troponin I High Sensitivity 3 L </=54 ng/L Assessment/Plan Primary Diagnosis 1) SBO 2) HTN plan; admit tele, NPO, NG suction, IVF hydration, IV Abx Zosyn, pain control, antiemetics, surgery consult on board, daily labs, will follow along Plan discussed with: Other (n) KOMAL RUVALCABA MD Nov 29, 2024 07:16
[2024-11-29] MEDS: LIDOCAINE VISCOUS 2% 15ML UD PO ONE (08:45)
--- NOTE | 2024-11-29 09:58 | DVH ---
CHEST RADIOGRAPH Indication: TUBE PLACEMENT Technique: Single frontal view of the chest was obtained Comparison: CHEST PORTABLE on DOS: 01/07/22, CT CHEST ABD PELVIS WO CONTRAS on DOS: 01/07/22, CXRP on D OS: 01/07/22 FINDINGS: Lines and Tubes: Nasogastric tube tip in the stomach Lungs: No focal consolidation. Pleura: No effusion. No pneumothorax. Cardiomediastinal contours: Cardiomegaly. Bones: No acute osseous abnormality. IMPRESSION: Cardiomegaly with CHF.
[2024-11-29] MEDS: GASTROGRAFIN 120 ML SOL ONE (13:41)
[2024-11-29 15:55] VITALS: BP 172/100; PULSE 58; RESP 17; TEMP 96.6; O2SAT 98
[2024-11-29 16:00] VITALS: BP 172/100; PULSE 58; RESP 17; TEMP 97.6; O2SAT 98
--- NOTE | 2024-11-29 16:01 | DVH ---
Procedure: XY SMALL BOWEL SERIES-W GASTROGRA Reason for study/Clinical History: preop Comparison Study: None Technique: Single contrast small bowel series performed. FINDINGS/IMPRESSION: Initial product safety and standards engineer view of the abdomen and pelvis appears demonstrates no acute process. Contrast is identified within the colon by 45 minutes. This represents a normal small bowel transit time.
[2024-11-29 17:00] VITALS: BP 165/95; PULSE 59; RESP 18; TEMP 97.6; O2SAT 98
[2024-11-29 17:46] VITALS: PULSE 58; RESP 24; O2SAT 98
--- NOTE | 2024-11-29 19:47 | DVH ---
CHEST RADIOGRAPH Indication: sbp Technique: Single frontal view of the chest was obtained Comparison: CHEST PORTABLE on DOS: 01/07/22, CT CHEST ABD PELVIS WO CONTRAS on DOS: 01/07/22, CXRP on D OS: 01/07/22 FINDINGS: Lines and Tubes: None Lungs: No focal consolidation. Pleura: No effusion. No pneumothorax. Cardiomediastinal contours: Unremarkable Bones: No acute osseous abnormality. IMPRESSION: 1. No acute cardiopulmonary disease. 2. 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
[2024-11-29 20:00] VITALS: PULSE 62; PULSE 72; RESP 18; O2SAT 95
[2024-11-29 21:00] VITALS: BP 137/83; PULSE 62; RESP 18; TEMP 97.7; O2SAT 95
[2024-11-30] VITALS (8 sets, daily range): BP systolic 110–169; BP diastolic 67–111; PULSE 54–98; RESP 18–24; TEMP 97.2–98.8; O2SAT 91–96
[2024-11-30] MEDS: MORPHINE SULFATE INJ 2 MG/ml SYRG IV PRN (06:15)
[2024-11-30 07:25] LABS: Hematocrit 44.4 % (41.0-53.0); Hemoglobin 15.0 g/dL (13.5-17.5); Mean Corpuscular Hemoglobin 30.9 pg (28.0-32.0); Mean Corpuscular Volume 91.8 fL (80.0-100.0); Nucleated Red Blood Cells % 0.0 %
[2024-11-30 07:41] LABS: Albumin 4.2 g/dL (3.2-4.8); Alkaline Phosphatase 83 U/L (46-116); Anion Gap 9 (5-15); BUN/Creatinine Ratio 13.9 (10.0-20.0); Bilirubin, Total 1.1 mg/dL (0.2-1.0); Blood Urea Nitrogen 16 mg/dL (9-23); Carbon Dioxide 27 mmol/L (20-31); Glucose 81 mg/dL (74-106); Potassium 4.0 mmol/L (3.5-5.1); Sodium 144 mmol/L (136-145); Total Protein 6.9 g/dL (5.7-8.2)
[2024-11-30 07:43] LABS: Alanine Aminotransferase 110 U/L (7-40); Calcium 8.6 mg/dL (8.7-10.4); Chloride 108 mmol/L (98-107)
--- NOTE | 2024-11-30 20:36 | DVHPN2 ---
Progress Note - Dictate Date Seen: Nov 30, 2024 Medical Necessity Reason Pt with a Central, PICC or Fol: No Subjective Admitted overnight for small-bowel obstruction. Patient had a small-bowel follow-through study today does not show any significant obstruction. Patient is having loose bowel movements today. vital signs Vital Sign Date Time Temp Pulse Resp B/P (MAP) Pulse Ox O2 Delivery O2 Flow Rate FiO2 11/30/24 16:55 98.3 60 18 126/80 (95) 93 98.3 11/30/24 08:00 Room Air* 0 21 Total Intake and Output 11/29/24 11/29/24 11/30/24 15:00 23:00 07:00 Intake Total 100 ml 700 ml Balance 100 ml 700 ml medications Current Medications Medications Dose Ordered Sig/Anuel Route Start Time Stop Time Status Last Admin Dose Admin Nitroglycerin 0.4 mg Q5MINP PRN SL 11/28/24 16:45 Morphine Sulfate 2 mg Q30M PRN IV 11/28/24 16:45 Sodium Chloride 1,000 ml @ 75 mls/hr [id number] IV 11/28/24 16:45 11/30/24 09:02 75 MLS/HR Morphine Sulfate 2 mg Q4HP PRN IV 11/28/24 16:45 11/30/24 11:27 2 MG Ondansetron HCl 4 mg Q4HP PRN IV 11/28/24 16:45 11/28/24 23:45 4 MG Hydralazine HCl 10 mg Q4HPRN PRN IV 11/28/24 16:45 Piperacillin Sod/ Tazobactam Sod 100 ml @ 100 mls/hr Q8HR IV 11/28/24 22:00 11/30/24 15:40 100 MLS/HR objective Alert awake oriented x3. HEENT neck supple no JVD. Heart regular rate rhythm S1-S2. Lungs fair air movement without rales wheezes. Abdomen soft obese nontender positive bowel sounds. Extremities no edema. laboratory and microbiology Laboratory Tests 11/30/24 06:34 Test 11/30/24 06:34 Range/Units Serum Glucose 81 74-106 mg/dL Assessment/Plan Acute small-bowel obstruction post small-bowel follow-through appears to be resolved. We will advance diet as he tolerates overnight. If he remains stable without any significant pain nausea or vomiting he can be discharged home tomorrow. Discussed with the patient and nurse at bedside regarding care plan. Problems(with codes): (1) Acute abdominal pain (2) Small bowel obstruction Plan discussed with: Patient SALUD PERERA MD Nov 30, 2024 20:36
[2024-12-01 01:00] VITALS: BP 113/59; PULSE 59; RESP 18; TEMP 98.5; O2SAT 92
[2024-12-01 05:00] VITALS: BP 139/88; PULSE 64; RESP 18; TEMP 98.7; O2SAT 94
[2024-12-01 08:00] VITALS: PULSE 63; PULSE 86; RESP 18; O2SAT 96
[2024-12-01 08:43] VITALS: BP 152/88; PULSE 62; RESP 14; TEMP 98; O2SAT 98
[2024-12-01 09:07] LABS: Hematocrit 44.1 % (41.0-53.0); Hemoglobin 15.2 g/dL (13.5-17.5); Mean Corpuscular Hemoglobin 31.0 pg (28.0-32.0); Mean Corpuscular Volume 89.7 fL (80.0-100.0); Nucleated Red Blood Cells % 0.1 %
[2024-12-01 09:22] LABS: Albumin 4.1 g/dL (3.2-4.8); Alkaline Phosphatase 83 U/L (46-116); Anion Gap 11 (5-15); BUN/Creatinine Ratio 9.9 (10.0-20.0); Blood Urea Nitrogen 11 mg/dL (9-23); Calcium 8.7 mg/dL (8.7-10.4); Carbon Dioxide 24 mmol/L (20-31); Chloride 104 mmol/L (98-107); Potassium 3.8 mmol/L (3.5-5.1); Sodium 139 mmol/L (136-145); Total Protein 7.0 g/dL (5.7-8.2)
[2024-12-01 09:23] LABS: Alanine Aminotransferase 100 U/L (7-40); Bilirubin, Total 1.1 mg/dL (0.2-1.0); Glucose 111 mg/dL (74-106)
--- NOTE | 2024-12-01 11:17 | DVHDS2 ---
Discharge Summary Date of Admission Nov 28, 2024 at 16:40 Date of Discharge: Dec 01, 2024 Labs/Diagnostic Data: Laboratory Results Test 12/01/24 08:07 11/28/24 14:10 White Blood Count 8.5 10^3/uL (4.4-10.8) Red Blood Count 4.92 10^6/uL (4.5-5.90) Hemoglobin 15.2 g/dL (13.5-17.5) Hematocrit 44.1 % (41.0-53.0) Mean Corpuscular Volume 89.7 fL (80.0-100.0) Mean Corpuscular Hemoglobin 31.0 pg (28.0-32.0) Mean Corpuscular Hemoglobin Concent 34.5 g/dL (32.0-36.0) Red Cell Distribution Width 13.4 % (11.8-14.3) Platelet Count 215 10^3/uL (140-450) Mean Platelet Volume 9.8 fL (6.9-10.8) Neutrophils (%) (Auto) 77.8 % (37.0-80.0) Lymphocytes (%) (Auto) 13.4 % (10.0-50.0) Monocytes (%) (Auto) 5.5 % (0.0-12.0) Eosinophils (%) (Auto) 2.9 % (0.0-7.0) Basophils (%) (Auto) 0.4 % (0.0-2.0) Neutrophils # (Auto) 6.6 10 ^3/uL (1.6-8.6) Lymphocytes # (Auto) 1.1 10 ^3/uL (0.4-5.4) Monocytes # (Auto) 0.5 10 ^3/uL (0-1.3) Eosinophils # (Auto) 0.2 10 ^3/uL (0-0.8) Basophils # (Auto) 0 10 ^3/uL (0-0.2) Nucleated Red Blood Cells 0.1 % Sodium Level 139 mmol/L (136-145) Potassium Level 3.8 mmol/L (3.5-5.1) Chloride Level 104 mmol/L (98-107) Carbon Dioxide Level 24 mmol/L (20-31) Anion Gap 11 (5-15) Blood Urea Nitrogen 11 mg/dL (9-23) Creatinine 1.11 mg/dL (0.700-1.30) Glomerular Filtration Rate Calc 74 mL/min (>90) BUN/Creatinine Ratio 9.9 (10.0-20.0) Serum Glucose 111 mg/dL (74-106) Calcium Level 8.7 mg/dL (8.7-10.4) Total Bilirubin 1.1 mg/dL (0.2-1.0) Aspartate Amino Transferase (AST) 53 U/L (13-40) Alanine Aminotransferase (ALT) 100 U/L (7-40) Alkaline Phosphatase 83 U/L (46-116) Total Protein 7.0 g/dL (5.7-8.2) Albumin 4.1 g/dL (3.2-4.8) Prothrombin Time 10.3 sec (9.3-11.8) Prothrombin Time INR 0.97 (0.9-1.15) Troponin I High Sensitivity 3 ng/L (</=54) Other Laboratory Tests 12/01/24 08:07 Final Diagnosis/Problems List SBO RESOLVED Discharge Disposition: Home Discharge Instruct/Medications Diet: Consistent carbohydrate, Cardiac 2g Na,low cholest Activity: No Restrictions, As Tolerated Follow Up/Referral: PCP NEXT WEEK Medications: HOME MEDICATIONS Scheduled Lorazepam (Ativan), PO PRN, (Reported) Omeprazole Magnesium (Omeprazole), 20 MG PO BID Sucralfate (Carafate Susp), 10 ML PO QID Miscellaneous Medications Oxycodone W/ Acetaminophen (Percocet 5/325MG), (Reported) [[id number] Mg], MG, (Reported) Discharge Statement: "Patient was advised to return to the ER or call 911 if any headaches, dizziness, shortness of breath, chest pain, abdominal pain, bleeding, fevers, or worsening of medical condition. Patient was counseled about treatment plan, medications, possible side effects, patientverbalized understanding. All questions were answered to the best of my ability. This discharge took greater then 30 minutes in planning, reviewing documentation, counseling the patient, and discussing with other team members." ASSESSMENT ASSESSMENT Assessment SBO RESOLVED SALUD PERERA MD Dec 01, 2024 11:17
[2024-12-01 11:19] VITALS: BP 148/86; PULSE 74; RESP 18; TEMP 98; O2SAT 98
== END 2024-12-01 12:15 | disposition home or self-care (01) | DRG 389 ==
LOC: EDUNIT# 13:46 → EDBD 13:46 → ER 13:46 → OVERFLOW 16:40 → TELE-WESTW 11-29 15:51
PROVIDERS: ADMIT Internal Medicine; ATTEND Internal Medicine
DX: K56.600 Partial intestinal obstruction, unspecified as to cause (principal); R65.10 Systemic inflammatory response syndrome (SIRS) of non-infectious origin without acute organ dysfunction; I10 Essential (primary) hypertension; Z79.899 Other long term (current) drug therapy
CPT/HCPCS: 36415; 71045; 74176; 74250; 80048; 80053; 84484; 85025; 85610; 86850; 86900; 86901; 93005; 96361; 96374; 96375; 99291; 99292; G0378; J2405; J2470; J2543